=== PATIENT | male | born 2000 ===

== ENCOUNTER 2023-04-04 14:42 | Emergency (ER) | payer OTHER ==
[~2023-04-04] VITALS: Ht 182.9 cm; Wt 83.9 kg
[2023-04-04 14:55] VITALS: BP 133/95
== END 2023-04-04 16:07 | disposition home or self-care (01) ==
LOC: ER 14:42 → EDBD 14:42 → ER 16:07
DX: S63.502A Unspecified sprain of left wrist, initial encounter (principal); X50.0XXA Overexertion from strenuous movement or load, initial encounter; Y93.64 Activity, baseball; Z88.8 Allergy status to other drugs, medicaments and biological substances
CPT/HCPCS: 73130